=== PATIENT | male | born 1970 | race Caucasian/White ===

== ENCOUNTER 2018-11-24 21:29 | Emergency (ER) | payer MEDICAID ==
[~2018-11-24] VITALS: Ht 172.7 cm; Wt 90.7 kg
--- NOTE | 2018-11-24 21:29 | NUR ---
48 [facility] [place] PT STATES HE SLIPPED AND FELL ON L SIDE AND IS NOW C/O L FLANK PAIN. SKIN INTACT, NO DISCOLORATION NOTED, TENDERENESS NOTED TO L FLANK AREA. PT HAS LIMITED ROM; ABLE TO AMBULATE WITH DISCOMFORT. PT C/O 8/10 PAIN THROBBING. GURNEY LOCKED IN LOWEST POSITION, CALL LIGHT WITHIN REACH. ERMD @ BEDSIDE. DENIES PMH DENIES ALLERGIES
--- NOTE | 2018-11-24 21:29 | NUR ---
PT JESENIA BLS. TAKEN TO BED 5
[2018-11-24 21:33] VITALS: BP 161/94
[2018-11-24] MEDS ORDERED: DIAZEPAM 5 MG TAB PO ONE (21:35)
[2018-11-24] MEDS ORDERED: KETOROLAC 30 MG/ML VIAL IM ONE (21:35)
--- NOTE | 2018-11-24 21:43 | NUR ---
PT WENT TO XRAY
--- NOTE | 2018-11-24 21:54 | NUR ---
PT BACK FROM RADIOLOGY.
--- NOTE | 2018-11-24 21:55 | NUR ---
PT RETURN FROM RAD
[2018-11-24] MEDS ORDERED: fentaNYL 0.05 MG/ML VIAL NS ONE (22:25)
--- NOTE | 2018-11-25 00:20 | NUR ---
DISCHARGE PAPERS GIVEN TO PT. PT STATES NO PAIN UPON DISCHARGE. VSS. RX OF LIDODERM PATCH, NAPROSYN, AND NORCO GIVEN. SIDE EFFECTS EXPLAINED. INSTRUCTED TO F/U WITH PCP AND WHEN TO RETURN TO ER. ALL QUESTIONS ANSWERED.
[2018-11-25 00:26] VITALS: BP 155/76
== END 2018-11-25 00:20 | disposition home or self-care (01) ==
LOC: MED 21:29
DX: S22.42XA Multiple fractures of ribs, left side, initial encounter for closed fracture (principal); M54.6 Pain in thoracic spine; W01.0XXA Fall on same level from slipping, tripping and stumbling without subsequent striking against object, initial encounter; Y93.89 Activity, other specified; Y92.89 Other specified places as the place of occurrence of the external cause; Y99.8 Other external cause status
CPT/HCPCS: 71101; 96372; 99283; J1885; J3010